=== PATIENT | female | born 2000 | race Caucasian/White ===

== ENCOUNTER 2020-04-03 03:08 | Inpatient (IN) ==
--- NOTE | 2020-04-03 03:26 | Emergency Department Note ---
Impression & Plan Depression with suicidal ideation, Laceration of left wrist ED Provider Note Name: JACKELYN VALENZUELA Age: 19 Sex: F Arrives Via: Ambulance Informant: Patient ED Provider: Fantasma Vela MD Chief Complaint: Depression Impression: Depression with suicidal ideation Laceration of left wrist Medical Decision Makin yr old female arrives after attempting to cut left wrist in reportedly suicide attempt. She admits thoughts of and killing self recently due to worsening depression and issues with friends. She denies other recent attempts at harm and medically she is clear. Lacerations do not require closure. She was not significantly intoxicated when this occurred. Information obtained from Case Management further confirms worsening depression, bizarre behavior and clearly need for hospitalization. Delay in getting urine sample but otherwise patient medically cleared. Signed out to Dr Cardenas pending placement. Triage/Nursing Notes reviewed by Me Differentials:Mood disorder, infection, hypoglycemia, electrolyte abnormalities, cardiac sources, intracerebral event, toxicologic, trauma, neurol ogic, as well as other pathologies. amongst other pathologies. Vital Signs: reviewed and remarkable for no significant abnormalities Labs:Reviewed and remarkable for no significant abnormalities Consults:Mental health case management: Inpatient psychiatric treatment Plan: Disposition:Signed out to Dr Cardenas Condition: Good Blood pressure:Normal.No Referral necessary Prescriptions:none PDMP: n/a History of Present Illness:19 yr old female with history of depression arrives for evaluation of suicidal thoughts. Patient notes 3 yrs of depression which over the last few weeks has been worsening. This evening she had verbal argument with friend which exacerbated symptoms. She notes she was thinking of dying thus she cut her left wrist. After seeing the amount of bleeding she sto pped and friends called 911. She admits she has been feeling like dieing recently with increasing thoughts of suicide. No specific plan but thinks of ways to kill herself. Denies other injury to self. No previous suicide attempts. No previous hospitalizations for psychiatric issues. Denies taking any medications other than her daily Sertraline today. No overdose of meds. She notes her father has Bipolar with previous attempts at self harm. No family member who has committed suicide that she is aware of. Denies drug use. Admits alcohol use earlier in evening. ROS: See above HPI for pertinent positives & negatives. A total of 10 systems reviewed and were otherwise negative. Past Medical History:Depression Past Surgical History:None Family History:Father Bipolar Social History:[employer] studying [place]. Occasional ETOH. No drugs, no tobacco Home Medications:Sertraline Allergies:None Vitals:Blood Pressure: 107/79, Pulse 98, RR 20, T 36.9C, O2 99% on RA Physical Exam: GENERAL: Patient is well appearing and in no acute distress. EYES: No scleral icterus, unremarkable pupils. ENT: Mucous membranes moist, no nasal congestion. NECK: No masses appreciated, nomeningismus, trachea is midline. RESPIRATORY: No dyspnea. Clear to auscultation and equal bilaterally. No wheeze, no rhonchi. CARDIOVASCULAR: Regular rate and rhythm.No murmurs, rubs, gallops appreciated. GASTROINTESTINAL: Abdomen soft, non-tender, no peritonitis.Bowel sounds positive.No masses appreciated. BACK: No midline tenderness, no CVA tenderness EXTREMITIES: Normal motion all extremities, no cyanosis, no edema. NEUROLOGIC: Alert and oriented, no acute motor or sensory deficits, no focal weakness, cranial nerves grossly intact. SKIN: Several left volar wrist/forearm superficial lacerations without active bleeding. Distal n/v intact. No rash, no jaundice, no diaphoresis. PSYCH: Noncongruent with statements of suicidal depression, periodically laughing nervously. Admits suicidal ideation with depression. GCS: 15 Fantasma Vela MD Past Med/Surg History Medical History Tear of frenulum of upper lip Surgical History No pertinent past surgical history Family History Other No pertinent family history Social History Smoking Status: Current every day smoker Preferred Language: [place] Communication Ability: Effective Inspector Tester Sorter Required: No Beliefs That Will Affect Care: Spiritual ("I believe in God, but that's about it") Feels Safe at Home: Yes Allergies Allergies Allergy/AdvReac Type Severity Reaction Status Date / Time No Known Allergies Allergy Verified 04/08/19 23:41 Home Meds Home Medications Medication Instructions Recorded Confirmed sertraline 200 mg PO QAM 04/08/19 04/03/20 Previous Rx's Medication Instructions Recorded bupropion HCl 100 mg PO QAM #30 ea 04/04/20 nicotine 14 mg TRANSDERMAL QAM #14 ea 04/04/20 nicotine (polacrilex) [Nicorelief] 1 piece of gum MT PRN PRN #160 ea 04/04/20 Results & Data (ED) Vital Signs Vital Signs - 24 hr 04/03/20 03:31 Temperature 36.9 C Temperature Source Oral Pulse Rate 98 H Pulse Rhythm Regular Pulse Strength Normal Respiratory Rate 20 Respiratory Effort / Characteristics Non-Labored Spontaneous Respiratory Depth Normal Respiratory Pattern Regular Blood Pressure 107/79 Blood Pressure Mean 88 Blood Pressure Position Sitting Pulse Oximetry 99 Oxygen Delivery Method Room Air Sepsis Recent Fever Within 48 Hours No Sepsis New/Unexplained Change in Mental Status No Sepsis Action Taken by Nursing No Action Required Laboratory Data Result diagrams: 04/03/20 04:07 04/03/20 04:07 Lab Results 04/03/20 04/03/20 04/03/20 Range/Units 04:07 04:07 04:07 WBC 7.40 (4.8-10.8) K/uL RBC 4.64 (4.2-5.4) M/uL Hgb 13.0 (12.0-16.0) g/dL Hct 38.7 (37-47) % MCV 83.4 (80-100) fL MCH 28.0 (25-34) pg MCHC 33.6 (32-36) g/dL RDW Std Deviation 40.4 (36.4-46.3) fL RDW Coeff of Severiano 13.4 (11.5-14.5) % Plt Count 219 (130-400) K/uL MPV 10.3 (7.4-10.4) fL Immature Gran % (Auto) 0.1 % Neut % (Auto) 64.9 % Lymph % (Auto) 24.9 % Bland % (Auto) 8.9 % Eos % (Auto) 0.9 % Baso % (Auto) 0.3 % Neut # (Auto) 4.80 (1.4-6.5) K/uL Lymph # (Auto) 1.84 (1.2-3.4) K/uL Bland # (Auto) 0.66 H (0.11-0.59) K/uL Eos # (Auto) 0.07 (0-0.5) K/uL Baso # (Auto) 0.02 (0-0.2) K/uL Immature Gran # (Auto) 0.01 (0.00-0.02) K/uL Sodium 141 (136-145) mmol/L Potassium 3.8 (3.5-5.1) mmol/L Chloride 110 H (98-107) mmol/L Carbon Dioxide 22 (21-32) mmol/L Anion Gap 9.0 (3-11) BUN 8 (7-18) mg/dl Creatinine 0.86 (0.6-1.2) mg/dl Est Cr Clr Drug Dosing 110.0 ml/min Est GFR ( Amer) 113.5 Est GFR (Non-Af Amer) 97.9 BUN/Creatinine Ratio 9.0 L (10-20) Glucose 86 (70-99) mg/dl Calcium 8.9 (8.5-10.1) mg/dl Total Bilirubin 0.2 (0.2-1) mg/dl AST 12 L (15-37) U/L ALT 16 (12-78) U/L Alkaline Phosphatase 91 (45-117) U/L Total Protein 7.3 (6.4-8.2) gm/dl Albumin 3.7 (3.4-5.0) gm/dl Globulin 3.6 (2.5-4.0) gm/dl Albumin/Globulin Ratio 1.0 (0.9-2) TSH 0.840 (0.300-4.500) uIu/ml Urine Color Urine Appearance (Clear) Urine pH (4.5-7.5) Ur Specific Wray (1.000-1.030) Urine Protein (Negative) Urine Glucose (UA) (Negative) Urine Ketones (Negative) Urine Blood (Negative) Urine Nitrite (Negative) Urine Bilirubin (Negative) Urine Urobilinogen (Negative) Ur Leukocyte Esterase (Negative) Urine Test (Negative) Salicylates < 1.7 L (2.8-20) mg/dl Urine Opiates Screen (Neg) Ur Methadone, Qual (Neg) Acetaminophen < 2 L (10-30) ug/ml Urine Barbiturates (Neg) Ur Phencyclidine (PCP) (Neg) U Amphetamin/Meth Scrn (Neg) MDMA (Ecstasy) Screen (Neg) U Benzodiazepines Scrn (Neg) Ur Cocaine Metabolite (Neg) U Marijuana (THC) Screen (Neg) U Marijuana THC Carboxy (<5) ng/mL Drug Screen Comment Ethyl Alcohol mg/dL (0-3) mg/dl 04/03/20 04/03/20 04/03/20 Range/Units 04:07 06:20 06:20 WBC (4.8-10.8) K/uL RBC (4.2-5.4) M/uL Hgb (12.0-16.0) g/dL Hct (37-47) % MCV (80-100) fL MCH (25-34) pg MCHC (32-36) g/dL RDW Std Deviation (36.4-46.3) fL RDW Coeff of Severiano (11.5-14.5) % Plt Count (130-400) K/uL MPV (7.4-10.4) fL Immature Gran % (Auto) % Neut % (Auto) % Lymph % (Auto) % Bland % (Auto) % Eos % (Auto) % Baso % (Auto) % Neut # (Auto) (1.4-6.5) K/uL Lymph # (Auto) (1.2-3.4) K/uL Bland # (Auto) (0.11-0.59) K/uL Eos # (Auto) (0-0.5) K/uL Baso # (Auto) (0-0.2) K/uL Immature Gran # (Auto) (0.00-0.02) K/uL Sodium (136-145) mmol/L Potassium (3.5-5.1) mmol/L Chloride (98-107) mmol/L Carbon Dioxide (21-32) mmol/L Anion Gap (3-11) BUN (7-18) mg/dl Creatinine (0.6-1.2) mg/dl Est Cr Clr Drug Dosing ml/min Est GFR ( Amer) Est GFR (Non-Af Amer) BUN/Creatinine Ratio (10-20) Glucose (70-99) mg/dl Calcium (8.5-10.1) mg/dl Total Bilirubin (0.2-1) mg/dl AST (15-37) U/L ALT (12-78) U/L Alkaline Phosphatase (45-117) U/L Total Protein (6.4-8.2) gm/dl Albumin (3.4-5.0) gm/dl Globulin (2.5-4.0) gm/dl Albumin/Globulin Ratio (0.9-2) TSH (0.300-4.500) uIu/ml Urine Color Yellow Urine Appearance Clear (Clear) Urine pH 6.0 (4.5-7.5) Ur Specific Wray 1.008 (1.000-1.030) Urine Protein Negative (Negative) Urine Glucose (UA) Negative (Negative) Urine Ketones Negative (Negative) Urine Blood Negative (Negative) Urine Nitrite Negative (Negative) Urine Bilirubin Negative (Negative) Urine Urobilinogen Negative (Negative) Ur Leukocyte Esterase Negative (Negative) Urine Test Negative (Negative) Salicylates (2.8-20) mg/dl Urine Opiates Screen (Neg) Ur Methadone, Qual (Neg) Acetaminophen (10-30) ug/ml Urine Barbiturates (Neg) Ur Phencyclidine (PCP) (Neg) U Amphetamin/Meth Scrn (Neg) MDMA (Ecstasy) Screen (Neg) U Benzodiazepines Scrn (Neg) Ur Cocaine Metabolite (Neg) U Marijuana (THC) Screen (Neg) U Marijuana THC Carboxy (<5) ng/mL Drug Screen Comment Ethyl Alcohol mg/dL 90.0 H (0-3) mg/dl 04/03/20 04/03/20 Range/Units 06:20 06:20 WBC (4.8-10.8) K/uL RBC (4.2-5.4) M/uL Hgb (12.0-16.0) g/dL Hct (37-47) % MCV (80-100) fL MCH (25-34) pg MCHC (32-36) g/dL RDW Std Deviation (36.4-46.3) fL RDW Coeff of Severiano (11.5-14.5) % Plt Count (130-400) K/uL MPV (7.4-10.4) fL Immature Gran % (Auto) % Neut % (Auto) % Lymph % (Auto) % Bland % (Auto) % Eos % (Auto) % Baso % (Auto) % Neut # (Auto) (1.4-6.5) K/uL Lymph # (Auto) (1.2-3.4) K/uL Bland # (Auto) (0.11-0.59) K/uL Eos # (Auto) (0-0.5) K/uL Baso # (Auto) (0-0.2) K/uL Immature Gran # (Auto) (0.00-0.02) K/uL Sodium (136-145) mmol/L Potassium (3.5-5.1) mmol/L Chloride (98-107) mmol/L Carbon Dioxide (21-32) mmol/L Anion Gap (3-11) BUN (7-18) mg/dl Creatinine (0.6-1.2) mg/dl Est Cr Clr Drug Dosing ml/min Est GFR ( Amer) Est GFR (Non-Af Amer) BUN/Creatinine Ratio (10-20) Glucose (70-99) mg/dl Calcium (8.5-10.1) mg/dl Total Bilirubin (0.2-1) mg/dl AST (15-37) U/L ALT (12-78) U/L Alkaline Phosphatase (45-117) U/L Total Protein (6.4-8.2) gm/dl Albumin (3.4-5.0) gm/dl Globulin (2.5-4.0) gm/dl Albumin/Globulin Ratio (0.9-2) TSH (0.300-4.500) uIu/ml Urine Color Urine Appearance (Clear) Urine pH (4.5-7.5) Ur Specific Wray (1.000-1.030) Urine Protein (Negative) Urine Glucose (UA) (Negative) Urine Ketones (Negative) Urine Blood (Negative) Urine Nitrite (Negative) Urine Bilirubin (Negative) Urine Urobilinogen (Negative) Ur Leukocyte Esterase (Negative) Urine Test (Negative) Salicylates (2.8-20) mg/dl Urine Opiates Screen Neg (Neg) Ur Methadone, Qual Neg (Neg) Acetaminophen (10-30) ug/ml Urine Barbiturates Neg (Neg) Ur Phencyclidine (PCP) Neg (Neg) U Amphetamin/Meth Scrn Neg (Neg) MDMA (Ecstasy) Screen Neg (Neg) U Benzodiazepines Scrn Neg (Neg) Ur Cocaine Metabolite Neg (Neg) U Marijuana (THC) Screen Pos H (Neg) U Marijuana THC Carboxy 64 H (<5) ng/mL Drug Screen Comment SEE NOTE Ethyl Alcohol mg/dL (0-3) mg/dl Administered Medications Discontinued Medications Bupropion HCl (Bupropion Sr 100 Mg Tabcr) [facility] [place] Stop: 05/04/20 08:59 Last Admin: 04/04/20 08:51 Dose: 100 mg Documented by: [id number] Miscellaneous (Remove Nicoderm Patch) 1 ea N/A [id number] [facility] Stop: 05/04/20 08:58 Last Admin: 04/04/20 08:51 Dose: 1 ea Documented by: [id number] Nicotine (Nicotine 14 Mg/24 Hr Patch) [address] [facility] Stop: 05/03/20 10:29 Last Admin: 04/04/20 08:51 Dose: 14 mg Documented by: [id number] Admin: 04/03/20 11:36 Dose: 14 mg Documented by: [id number] Nicotine Polacrilex (Nicotine Polacrilex 2 Mg Gum) 1 piece MT PRN PRN PRN Reason: nicotine cravings Stop: 05/03/20 10:23 Last Admin: 04/04/20 17:32 Dose: 1 piece Documented by: [id number] Admin: 04/04/20 13:03 Dose: 1 piece Documented by: [id number] Admin: 04/04/20 08:57 Dose: 1 piece Documented by: [id number] Admin: 04/03/20 17:47 Dose: 1 piece Documented by: [id number] Admin: 04/03/20 13:01 Dose: 1 piece Documented by: [id number] Sertraline HCl (Sertraline Hcl 100 Mg Tablet) [address] [facility] Stop: 05/03/20 10:59 Last Admin: 04/04/20 08:51 Dose: 200 mg Documented by: [id number] Admin: 04/03/20 11:35 Dose: 200 mg Documented by: [id number] Discharge Plan Visit Data Chief Complaint: Mental Health Evaluation Stated Complaint: MINOR WRIST LAC., MHID ED Provider: Jayda Cardenas Discharge Problem: Depression with suicidal ideation, Laceration of left wrist Patient Disposition: Admitted As Inpatient Discharge Instructions Interventions: ED Discharge Assessment Last Done: 04/03/20 09:38 Discharge Problem: Laceration of left wrist Qualifiers: Encounter type: initial encounter Qualified Code(s): S61.512A - Laceration without foreign body of left wrist, initial encounter
[2020-04-03 04:22] LABS: Basophils # (auto) 0.02 K/uL (0-0.2); Basophils % (auto) 0.3 %; Eosinophils # (auto) 0.07 K/uL (0-0.5); Eosinophils % (auto) 0.9 %; Hematocrit (blood only) 38.7 % (37-47); Immature Granulocytes # (auto) 0.01 K/uL (0.00-0.02); Immature Granulocytes % (auto) 0.1 %; Lymphocytes # (auto) 1.84 K/uL (1.2-3.4); Lymphocytes % (auto) 24.9 %; Mean Corpuscular Hgb Conc 33.6 g/dL (32-36); Mean Corpuscular Volume 83.4 fL (80-100); Mean Platelet Volume 10.3 fL (7.4-10.4); Monocytes # (auto) 0.66 K/uL (0.11-0.59); Monocytes % (auto) 8.9 %; Neutrophils % (auto) 64.9 %; Platelet Count 219 K/uL (130-400); RDW Coefficient of Variation 13.4 % (11.5-14.5); RDW Standard Deviation 40.4 fL (36.4-46.3); Red Blood Count 4.64 M/uL (4.2-5.4)
[2020-04-03 04:38] LABS: Albumin Level 3.7 gm/dl (3.4-5.0); Calcium 8.9 mg/dl (8.5-10.1); Est GFR (African American) 113.5; Est GFR (Non-African American) 97.9; Potassium 3.8 mmol/L (3.5-5.1)
[2020-04-03 04:49] LABS: Bilirubin,Total 0.2 mg/dl (0.2-1); Globulin 3.6 gm/dl (2.5-4.0); Thyroid Stimulating Hormone 0.84 uIu/ml (0.300-4.500); Total Protein 7.3 gm/dl (6.4-8.2)
[2020-04-03 04:59] LABS: Acetaminophen < 2 ug/ml (10-30); Salicylate < 1.7 mg/dl (2.8-20)
[2020-04-03 06:48] LABS: Appearance Urine Clear (Clear); Bilirubin Urine Negative (Negative); Blood Urine Negative (Negative); Color Urine Yellow; Glucose Urine UA Negative (Negative); Ketones Urine Negative (Negative); Leukocyte Esterase Urine Negative (Negative); Nitrite Urine Negative (Negative); Protein Urine Negative (Negative); Specific Gravity Urine 1.008 (1.000-1.030); Urobilinogen Urine Negative (Negative)
[2020-04-03 06:57] LABS: Pregnancy Test, Urine Negative (Negative)
--- NOTE | 2020-04-03 07:06 | Emergency Department Note ---
ED Visit Note I received this patient in signout at the change of shift from Dr. Vela, pending mental health bed search. The patient was referred to [facility] and accepted on a voluntary basis. Please refer to previous documentation for further details of the history, physical and visit. . : Laceration of left wrist Qualifiers: Encounter type: initial encounter Qualified Code(s): S61.512A - Laceration without foreign body of left wrist, initial encounter
[2020-04-03 07:18] LABS: Amphetamines+Metham, Urine Neg (Neg); Barbiturates, Urine Neg (Neg); Benzodiazepine, Urine Neg (Neg); Cocaine, Urine Neg (Neg); MDMA (Ecstacy), Urine Neg (Neg); Methadone, Urine Neg (Neg); Opiate, Urine Neg (Neg); Phencyclidine, Urine Neg (Neg)
[2020-04-03] MEDS ORDERED: ALUMINUM/MAGNESIUM SUSP 30 ML UDC PO PRN (08:14)
[2020-04-03] MEDS ORDERED: MAGNESIUM HYDROXIDE SUSP 30 ML UDC PO PRN (08:14)
[2020-04-03] MEDS ORDERED: BISMUTH SUBSALICYLATE PER ML OMNICELL CHARGE PO PRN (08:14)
[2020-04-03] MEDS ORDERED: ACETAMINOPHEN 325 MG TAB PO PRN (08:14)
[2020-04-03] MEDS ORDERED: SODIUM CHLORIDE 0.65% NA SOLN 45 ML (OCEAN) PRN (08:14)
[2020-04-03] MEDS ORDERED: [UNRECOGNIZED DRUG - OTHER] PO SCH (09:00)
--- NOTE | 2020-04-03 11:18 | History & Physical ---
Date of Service April 03, 2020 Impression / Recommendations Impression 19-year-old female admitted voluntarily for inpatient psychiatric treatment on 04/03/2020 due to worsening depression and SI, admitting she had cut her wrists prior to admission telling ED case management it was with intent to end her life. It is reported that the patient has been experiencing worsening depression for the past 3 weeks, has lost ~15lbs, and is not sleeping well. ED documentation suggests roommates have been concerned about the patient's isolative behavior. Pt has been prescribed 200mg of sertraline and has a history of depression and eating disorder (purging, binging, and restrictive eating behaviors), but states this has been in remission for >1 year. Pt initially seemed to be minimizing her symptoms, stating her actions were impulsive and that things rapidly improved. Fortunately, she was able to disclose more information as admission assessment continued. Pt admits that there have been several recent situational stressors that have contributed to worsening mood in the last few weeks. Decisions made while under the influence of alcohol have been contributing to conflict with her friend/roommate. Pt also admits to being a bit "homesick." Although she admits her presentation is highly related to these recent situations, she does admit to feeling that sertraline has not been as effective recently. After thorough discussion of medication options, the patient requests initiation of bupropion as she feels depressive symptoms have been the biggest concern. We did have an honest conversation about risk of bupropion in combination with active disordered eating behaviors, especially purging. Pt admits to feeling stable with regard to history of eating disorder and states she would inform her prescriber if there were a change in these symptoms. Will initiate bupropion SR at 100mg each morning, with titration as needed/tolerated. Pt is willing for a family meeting with parents, and has already made the decision to return home to complete the semester remotely. Pt denies SI presently, but admits that she needs to address her increased depression. Pt will also require referrals for outpatient therapy and medication management, likely closer to home. Pt remains at high risk of suicide if she is discharged prematurely. Dr. Nadine Suero was directly involved in review and discussion of the patient's case and participated in medical decision making regarding treatment recommendations. (1) Depression with suicidal ideation: 04/03 - Admitted to a locked inpatient behavioral health unit, on q15 minute safety checks - Pt is agreeable with medication adjustments. She requests to continue sertraline at current dose, but feel augmenting with an additional agent would be beneficial. After review of options (mirtazapine, buspirone, bupropion), patient requested bupropion in order to try to target depression with a more activating medication. Will initiate at 100mg qAM, with titration as needed/tolerated. We did discuss in detail that patient should inform her outpatient prescriber of any recurrence of disordered eating behavior. Risks, benefits, and potential side effects were reviewed, including Black Box warning for suicidality in children/adolescents. Pt verbalized understanding and is agreeable with medication changes. - Encourage participation in group and recreational therapies - Gather collateral information from outpatient supports - Suggest family meeting to involve outpatient supports in safety and discharge planning - Arrange appropriate aftercare;, patient will require outpatient therapy and medication management - Pt reports plan to return home with her parents and complete the semester remotely (2) Laceration of left wrist: 04/03 - Laceration did not require sutures/richard - continue to monitor for signs of infection. - Will order bacitracin to be used as needed for prevention of infection Encounter type: initial encounter Qualified Code(s): S61.512A - Laceration without foreign body of left wrist, initial encounter (3) Eating disorder in remission: 04/03 - Pt admits to a history of purging, binge eating, restriction, and compensatory exercise. She states she has not engaged in these behaviors in over a year. Pt admits to recent weight loss, but believes this to be in the context of depressive symptoms. - Monitor nutritional intake as usual; not a primary focus of treatment at this time. 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 Pt has a history of depression and bulimia, and was admitted on 04/03/20 08:14 on a 201 voluntary commitment for worsening depression and SI with numerous plans. Pt had also cut her wrists prior to admission, stating that it was with the intent to end her life. Chief Complaint "Oh, yeah...I feel better now. I don't really know what it was." History of Present Illness Jackelyn Valenzuela is a 19-year-old female admitted voluntarily for inpatient psychiatric treatment on 04/03/2020 after presenting to the ED with worsening depression and SI with numerous plans (hang herself, jump from a building, or cut her wrists). ED documentation states the patient did, in fact, cut her wrists prior to her presentation with the intent to end her life. It is documented that patient became concerned when she observed the blood. It was reported that roommates called 911 and the patient's - all concerned about recent changes in the patient's behavior. Pt denies history of psychiatric hospitalization. It was reported that patient was tearful in the ED, but ultimately willing for admission. Pt is cooperative with psychiatric evaluation, and is very pleasant with conversation. This provider met briefly with patient to introduce herself, and shared a plan to meet more extensively with the patient after lunch. Pt did initially admit that she feels better at this point and "I don't really know what it was." Pt admits that she has had more significant stress in the last 3 weeks, and eventually admits it is heavily related to discord with her roommate and close friend. Pt states "we had a big blow out, and things were getting better. I don't really know what it was." Pt stated she has been on sertraline 200mg for "A long time...years", but admits she may be willing to consider medication adjustments due to noticeable worsening of depressive symptoms. Pt was kind and cooperative, but did seem to be minimizing symptoms upon initial conversation. Fortunately, patient was much more forthcoming with our second encounter. Pt admitted rather bluntly that the first week of returning to campus, she had engaged in sexual activities with her "best kimi friend" while she was intoxicated. Pt states that she felt guilt and informed her "best girl friend" of the situation. Pt reports, "she was trying to be helpful, I get that, but she told me I needed to get some self respect and stop doing this kind of stuff. We had a big blow out, but really, she was right." Pt states that she has had several episodes of "making stupid choices" while intoxicated, and since the conversation with her friend has realized "I need to cut back on the alcohol." Pt states that although she drinks "only 1 or 2 days a week", she had been drinking to get drunk and was often blacking out. Pt states she has already started to address her alcohol intake and has been happy with the result. Pt admits, however, that she has been thinking a lot about the conversation with her friend/roommate and "I just feel so gross, I feel dirty. Like no one should have to be around me, so I guess that's where the isolation comes in." Pt states that she has also been having more anxious thoughts at night. In regard to concerns leading to admission, patient states "I went in the bathroom to take a shower, but while I was in there I started having all these anxious thoughts. I got suicidal, and I guess started cutting myself. I don't know, it was weird." Pt states that she is not presently suicidal, but has experienced these thoughts "about once or twice a year, but I've never acted on them before." Pt endorses depressive symptoms of low mood, decreased energy, difficulty concentrating, poor motivation, limited productivity, hopelessness, helplessness, and guilt. She states that she often isolates and will sleep excessively - "15 hours a night, and then like 5 hour naps sometimes." Pt admits to "maybe one or two panic attacks in my life" and denies significant anxiety during the day. She does admit to increased anxiety and racing thoughts at night, which often make it difficult to fall asleep. Pt admits that her father is diagnosed with bipolar disorder. While she admits to episodes of feeling "more hyper" and "more organized", she does not describe any symptoms that are clearly consistent with a bipolar presentation to her mood. Pt does endorse a history of eating disorder with purging, binge eating, restriction, and compensatory exercising. Pt states she feels this is currently stable, and denies engaging in these activities in the last year. Pt denies HI, SIB, A/V hallucinations, paranoia, OCD, PTSD, and other specific psychiatric symptoms. Past Psychiatric History Current Psychiatric Diagnosis: Depression; Eating disorder, currently inactive Outpatient Services: Sertraline has been prescribed by patient's family medicine doctor, covered by prescribers through [facility] when patient is attending [employer]. Previous Psych Admissions: Denies History of Previous Suicide Attempt: No Past Medication Trials: Per patient report: 1. Prozac - "didn't like how it made me feel", hot flashes 2. Zoloft Past Head Trauma/Neuro History History of Concussion/Seizure: No Allergies Allergy/AdvReac Type Severity Reaction Status Date / Time No Known Allergies Allergy Verified 04/08/19 23:41 Home Medications Home Medications Medication Instructions Recorded Confirmed Type sertraline 200 mg PO QAM 04/08/19 04/03/20 History Family History Family History of: Bipolar (father) Alcohol History Hx of Alcohol Use Over the Past 12 Months: Yes (2-3x/wk, 1-2 drinks) AUDIT Total Score: 7 Pt admits to consuming alcohol 1-2 days per week, often drinking to the point of intoxication and occasionally blacking out as a result of alcohol use. Pt admits to generally consuming "5 shots and then 3 beers". She states she has made decisions she now regrets as a result of her alcohol use. Pt reports desire to cut down on intake, but does not view her alcohol use as a "problem." Smoking Use Have You Smoked or Used Tobacco Products in the Last 30 Days: Yes tobacco type: e-cigarettes Smoking Status: Current every day smoker Smoking packs per day: 1 Substance History Hx of Prescription Med Misuse Over the Past 12 Months: No Hx of Over the Counter Med Misuse Over the Past 12 Months: No Hx of Inhalent Misuse Over the Past 12 Months: No Hx of Organic Substance Use Over the Past 12 Months: Yes (Marijuana, unknown amount) Hx of Illegal Substances/Street Drug Use Over Past 12 Months: No Problems as a Result of Past Substance Use: None Identified Pt reports daily marijuana use, admitting to using the medical cards of others in order to obtain THC products. She states that in the past she has taken some of her brother's Ritalin in attempts to "stay awake to study." Personal History Living Arrangements: Apartment (living with several female roommates while attending [employer]) Highest Grade Completed: High School Graduate Highest Grade Completed Comment: Currently a Sophomore at [employer] Employment Status: Student Marital Status: Single Number Of Children: None Beliefs That Will Affect Care: Spiritual ("I believe in God, but that's about it") Current Legal Problems: No Hx Legal Problems: No Hx Traumatic Life Events: No Psychological Trauma History Comment: Pt denies perceived trauma, but does admit that most of her sexual encounter occur when she is under the influence of alcohol. She does admit to feeling her last sexual encounter was not consensual. Patient History Medical History Tear of frenulum of upper lip Surgical History No pertinent past surgical history Family History Other No pertinent family history Social History Smoking Status: Current every day smoker Preferred Language: Welsh Communication Ability: Effective Outpatient Pharmacy Manager Required: No Beliefs That Will Affect Care: Spiritual ("I believe in God, but that's about it") Feels Safe at Home: Yes Review of Systems Review of Systems: Constitutional: denied Cardiovascular: denied Respiratory: denied Gastrointestinal: denied Neurological: denied Psychiatric: denies symptoms other than stated above Total of at least 10 systems reviewed, pertinent positives as above and in HPI. Physical Exam Psychiatric: Orientation: alert, oriented x 3 and cooperative (and pleasant) Apperance: appropriately dressed, appropriately groomed and appeared stated age Eye Contact: good eye contact Motor Behavior: steady gait and station and no abnormal motor movements Speech: normal rate/rhythm/volume of speech Affect: euthymic affect; + mood not congruent with affect Affect displayed is inconsistent with reported mood and events leading to admission. Mood: + depressed mood and + anxious mood Thought Process: goal directed thought process, clear/coherent thought process and thought association intact Thought Content: reality based without delusions, + hopelessness, + worthlessness, + guilt and + self deprecation Suicidal Thoughts: denies suicidal thoughts (denies presently) Pt did admit in the ED that she was suicidal with plan to hang herself, cut her wrist or jump from a building. She did act on these thoughts by cutting her wrist just prior to admission. Homicidal Thoughts: denies homicidal thoughts Hallucinations: no auditory hallucinations and no visual hallucinations Cognition: recent memory grossly intact, attention grossly intact and language grossly intact Estimated Intelligence: consistent with education level Insight: + fair insight Judgement: + fair judgement Vital Signs (Past 24 Hours): Last Vital Signs Temp 36.7 C 04/03/20 10:11 Pulse 78 04/03/20 10:11 Resp 18 04/03/20 10:11 BP 97/65 L 04/03/20 10:11 Pulse Ox 100 04/03/20 10:11 Exam Statement: A physical exam was performed in the ER prior to admission to the unit by Dr. Fantasma Vela MD. I accept that physical as correct/medical clearance for the inpatient physical exam. Results & Data ([facility]) Laboratory Results Laboratory Results - last 24 hr 04/03/20 04/03/20 04/03/20 04:07 04:07 04:07 WBC 7.40 RBC 4.64 Hgb 13.0 Hct 38.7 MCV 83.4 MCH 28.0 MCHC 33.6 RDW Std Deviation 40.4 RDW Coeff of Severiano 13.4 Plt Count 219 MPV 10.3 Immature Gran % (Auto) 0.1 Neut % (Auto) 64.9 Lymph % (Auto) 24.9 [place] % (Auto) 8.9 Eos % (Auto) 0.9 Baso % (Auto) 0.3 Neut # (Auto) 4.80 Lymph # (Auto) 1.84 [place] # (Auto) 0.66 H Eos # (Auto) 0.07 Baso # (Auto) 0.02 Immature Gran # (Auto) 0.01 Sodium 141 Potassium 3.8 Chloride 110 H Carbon Dioxide 22 Anion Gap 9.0 BUN 8 Creatinine 0.86 Est Cr Clr Drug Dosing 110.0 Est GFR ( Amer) 113.5 Est GFR (Non-Af Amer) 97.9 BUN/Creatinine Ratio 9.0 L Glucose 86 Calcium 8.9 Total Bilirubin 0.2 AST 12 L ALT 16 Alkaline Phosphatase 91 Total Protein 7.3 Albumin 3.7 Globulin 3.6 Albumin/Globulin Ratio 1.0 TSH 0.840 Urine Color Urine Appearance Urine pH Ur Specific Pierson Urine Protein Urine Glucose (UA) Urine Ketones Urine Blood Urine Nitrite Urine Bilirubin Urine Urobilinogen Ur Leukocyte Esterase Urine Test Salicylates < 1.7 L Urine Opiates Screen Ur Methadone, Qual Acetaminophen < 2 L Urine Barbiturates Ur Phencyclidine (PCP) U Amphetamin/Meth Scrn MDMA (Ecstasy) Screen U Benzodiazepines Scrn Ur Cocaine Metabolite U Marijuana (THC) Screen U Marijuana THC Carboxy Drug Screen Comment Ethyl Alcohol mg/dL 04/03/20 04/03/20 04/03/20 04:07 06:20 06:20 WBC RBC Hgb Hct MCV MCH MCHC RDW Std Deviation RDW Coeff of Severiano Plt Count MPV Immature Gran % (Auto) Neut % (Auto) Lymph % (Auto) [place] % (Auto) Eos % (Auto) Baso % (Auto) Neut # (Auto) Lymph # (Auto) [place] # (Auto) Eos # (Auto) Baso # (Auto) Immature Gran # (Auto) Sodium Potassium Chloride Carbon Dioxide Anion Gap BUN Creatinine Est Cr Clr Drug Dosing Est GFR ( Amer) Est GFR (Non-Af Amer) BUN/Creatinine Ratio Glucose Calcium Total Bilirubin AST ALT Alkaline Phosphatase Total Protein Albumin Globulin Albumin/Globulin Ratio TSH Urine Color Yellow Urine Appearance Clear Urine pH 6.0 Ur Specific [place] 1.008 Urine Protein Negative Urine Glucose (UA) Negative Urine Ketones Negative Urine Blood Negative Urine Nitrite Negative Urine Bilirubin Negative Urine Urobilinogen Negative Ur Leukocyte Esterase Negative Urine Test Negative Salicylates Urine Opiates Screen Ur Methadone, Qual Acetaminophen Urine Barbiturates Ur Phencyclidine (PCP) U Amphetamin/Meth Scrn MDMA (Ecstasy) Screen U Benzodiazepines Scrn Ur Cocaine Metabolite U Marijuana (THC) Screen U Marijuana THC Carboxy Drug Screen Comment Ethyl Alcohol mg/dL 90.0 H 04/03/20 04/03/20 06:20 06:20 WBC RBC Hgb Hct MCV MCH MCHC RDW Std Deviation RDW Coeff of Severiano Plt Count MPV Immature Gran % (Auto) Neut % (Auto) Lymph % (Auto) [place] % (Auto) Eos % (Auto) Baso % (Auto) Neut # (Auto) Lymph # (Auto) [place] # (Auto) Eos # (Auto) Baso # (Auto) Immature Gran # (Auto) Sodium Potassium Chloride Carbon Dioxide Anion Gap BUN Creatinine Est Cr Clr Drug Dosing Est GFR ( Amer) Est GFR (Non-Af Amer) BUN/Creatinine Ratio Glucose Calcium Total Bilirubin AST ALT Alkaline Phosphatase Total Protein Albumin Globulin Albumin/Globulin Ratio TSH Urine Color Urine Appearance Urine pH Ur Specific [place] Urine Protein Urine Glucose (UA) Urine Ketones Urine Blood Urine Nitrite Urine Bilirubin Urine Urobilinogen Ur Leukocyte Esterase Urine Test Salicylates Urine Opiates Screen Neg Ur Methadone, Qual Neg Acetaminophen Urine Barbiturates Neg Ur Phencyclidine (PCP) Neg U Amphetamin/Meth Scrn Neg MDMA (Ecstasy) Screen Neg U Benzodiazepines Scrn Neg Ur Cocaine Metabolite Neg U Marijuana (THC) Screen Pos H U Marijuana THC Carboxy Pending Drug Screen Comment Pending Ethyl Alcohol mg/dL Current Inpatient Medications Current Inpatient Medications: Current Inpatient Medications Acetaminophen (Acetaminophen 325 Mg Tab) 650 mg PO Q4H PRN PRN Reason: Headache or Minor Fever Stop: 05/03/20 08:13 Al Hydrox/Mg Hydrox/Simethicone (Aluminum/Magnesium Susp 30 Ml Udc) 30 ml PO Q4H PRN PRN Reason: GI Upset Stop: 05/03/20 08:13 Bismuth Subsalicylate (Bismuth Subsalicylate Per Ml Omnicell Charge) 15 ml PO PRN PRN PRN Reason: Loose Stool Stop: 05/03/20 08:13 Hydroxyzine HCl (Hydroxyzine Hcl 25 Mg Tab) 50 mg PO HSZ PRN PRN Reason: Insomnia Stop: 05/03/20 08:13 Hydroxyzine HCl (Hydroxyzine Hcl 25 Mg Tab) 25 mg PO Q4H PRN PRN Reason: Anxiety Stop: 05/03/20 08:13 Magnesium Hydroxide (Magnesium Hydroxide Susp 30 Ml Udc) 30 ml PO DAILY PRN PRN Reason: Constipation Stop: 05/03/20 08:13 Miscellaneous (Remove Nicoderm Patch) 1 ea N/A DAILY@[id number] [facility] Stop: 05/04/20 08:58 Nicotine (Nicotine 14 Mg/24 Hr Patch) 14 mg TD QAM [facility] Stop: 05/03/20 10:29 Nicotine Polacrilex (Nicotine Polacrilex 2 Mg Gum) 1 piece MT PRN PRN PRN Reason: nicotine cravings Stop: 05/03/20 10:23 Sertraline HCl (Sertraline Hcl 100 Mg Tablet) 200 mg PO QAM [facility] Stop: 05/03/20 10:59 Sodium Chloride (Sodium Chloride 0.65% Na Soln 45 Ml ([place])) 1 - 2 sprays NA PRN PRN PRN Reason: Nasal Dryness/Congestion Stop: 05/03/20 08:13
[2020-04-03] MEDS: SERTRALINE HCL 100 MG TABLET PO SCH (11:35)
[2020-04-03] MEDS: NICOTINE 14 MG/24 HR PATCH TD SCH (11:36)
[2020-04-03] MEDS: NICOTINE POLACRILEX 2 MG GUM MT PRN ×2 (13:01→17:47)
[2020-04-03] MEDS ORDERED: BACITRACIN OINT 0.9 GM PKT EXT PRN (16:03)
[2020-04-04] MEDS: SERTRALINE HCL 100 MG TABLET PO SCH (08:51)
[2020-04-04] MEDS: NICOTINE 14 MG/24 HR PATCH TD SCH (08:51)
[2020-04-04] MEDS: NICOTINE POLACRILEX 2 MG GUM MT PRN ×3 (08:57→17:32)
[2020-04-04] MEDS ORDERED: BuPROPion SR 100 MG TABCR PO SCH (09:00)
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
[2020-04-05 13:32] LABS: Marijuana Quant, GCMS Urine 64 ng/mL (<5)
== END 2020-04-04 18:22 | disposition home or self-care (01) | DRG 881 ==
LOC: ED 03:08 → 3S 08:14